=== PATIENT | female | born 1955 | race Hispanic/Latino ===

== ENCOUNTER 2021-03-19 11:29 | Emergency (ER) | payer OTHER ==
[~2021-03-19] VITALS: Ht 154.9 cm; Wt 95.3 kg
[2021-03-19] MEDS ORDERED: TRAMADOL HCL 50 MG TAB PO ONE (11:45)
[2021-03-19] MEDS ORDERED: ULTRAM50 MG PO (13:19)
== END 2021-03-19 13:40 | disposition home or self-care (01) ==
LOC: ER 11:41
DX: S93.402A Sprain of unspecified ligament of left ankle, initial encounter (principal); X50.1XXA Overexertion from prolonged static or awkward postures, initial encounter; Y93.01 Activity, walking, marching and hiking; E11.22 Type 2 diabetes mellitus with diabetic chronic kidney disease; N18.6 End stage renal disease; Z99.2 Dependence on renal dialysis; E78.5 Hyperlipidemia, unspecified
CPT/HCPCS: 99283

== ENCOUNTER 2022-02-03 16:50 | Emergency (ER) | payer OTHER ==
[~2022-02-03] VITALS: Ht 154.9 cm; Wt 95.3 kg
[~2022-02-03 16:50] MED LIST: ULTRAM50 MG PO
[2022-02-03 17:15] LABS: BASOPHILS % 0.3 % (0.0-1.0); EOSINOPHILS # (AUTO) 0.1 (0.0-0.4); EOSINOPHILS % 0.6 % (0.0-6.0); HEMATOCRIT 26.7 % (34.2-44.1); HEMOGLOBIN 8.6 g/dL (12.0-16.0); LYMPHOCYTES # (AUTO) 1.1 (1.0-3.2); LYMPHOCYTES % 11.1 % (18.0-39.1); MEAN CORPUSCULAR HEMOGLOBIN 29.5 pg (28-32); MEAN CORPUSCULAR HGB CONC 32.2 g/dL (31-35); MEAN CORPUSCULAR VOLUME 91.4 fL (81-99); MONOCYTES # (AUTO) 0.6 (0.2-0.8); MONOCYTES % 5.6 % (4.4-11.3); NEUTROPHILS % 81.9 % (38.7-80.0); PLATELET COUNT 282 x10e3/uL (140-360); RED BLOOD COUNT 2.92 x10e6/uL (3.6-5.1); RED CELL DISTRIBUTION WIDTH 14.3 % (11.7-14.4)
[2022-02-03 17:31] LABS: INR 0.98; PROTHROMBIN TIME 13.9 seconds (11.9-14.5)
[2022-02-03 17:32] LABS: PARTIAL THROMBOPLASTIN TIME 29.6 seconds (23.8-35.5)
[2022-02-03 17:40] LABS: ALBUMIN 2.6 g/dL (3.5-5.0); ALBUMIN/GLOBULIN RATIO 0.6 (0.8-2.0); ANION GAP 15.3 mmol/L (8-16); CALCIUM 8.7 mg/dL (8.4-10.2); CREATININE, SERUM 5.75 mg/dL (0.57-1.11); POTASSIUM 4.3 mmol/L (3.5-5.1)
[2022-02-03] MEDS ORDERED: SODIUM CHLORIDE 0.9% 50ML 50 ML ONE (18:28)
[2022-02-03] MEDS ORDERED: IOPAMIDOL 370 MG/ML 200 ML INFUS..BTL INJ ONE (18:28)
[2022-02-03] MEDS ORDERED: CEPHALEXIN500 MG PO (19:13)
[2022-02-03] MEDS ORDERED: FERROUS SULFAT324 MG PO (19:13)
[2022-02-03 20:08] VITALS: BP 152/63
== END 2022-02-03 19:45 | disposition home or self-care (01) ==
LOC: ER 17:26
DX: D25.9 Leiomyoma of uterus, unspecified (principal); N39.0 Urinary tract infection, site not specified; E11.22 Type 2 diabetes mellitus with diabetic chronic kidney disease; N18.6 End stage renal disease; Z99.2 Dependence on renal dialysis; E78.5 Hyperlipidemia, unspecified; I51.7 Cardiomegaly; J90 Pleural effusion, not elsewhere classified
CPT/HCPCS: 36415; 70450; 72125; 74177; 76856; 80053; 85025; 85610; 85730; 99284; Q9967

== ENCOUNTER 2022-06-23 22:33 | Observation (INO) | payer OTHER ==
[~2022-06-23] VITALS: Ht 154.9 cm; Wt 95.3 kg
[~2022-06-23 22:33] MED LIST changes: +CEPHALEXIN500 MG PO; +FERROUS SULFAT324 MG PO
[2022-06-23 23:35] LABS: BASOPHILS % 0.6 % (0.0-1.0); EOSINOPHILS # (AUTO) 0.1 (0.0-0.4); EOSINOPHILS % 0.8 % (0.0-6.0); HEMATOCRIT 43.3 % (34.2-44.1); LYMPHOCYTES # (AUTO) 1.8 (1.0-3.2); LYMPHOCYTES % 24.8 % (18.0-39.1); MEAN CORPUSCULAR HEMOGLOBIN 29.6 pg (28-32); MEAN CORPUSCULAR VOLUME 98.6 fL (81-99); MONOCYTES # (AUTO) 0.5 (0.2-0.8); MONOCYTES % 6.9 % (4.4-11.3); NEUTROPHILS # (AUTO) 4.7 (2.1-6.9); NEUTROPHILS % 66.6 % (38.7-80.0); PLATELET COUNT 303 x10e3/uL (140-360); RED BLOOD COUNT 4.39 x10e6/uL (3.6-5.1); RED CELL DISTRIBUTION WIDTH 14.6 % (11.7-14.4)
[2022-06-23 23:46] LABS: ALBUMIN 3.5 g/dL (3.5-5.0); ALBUMIN/GLOBULIN RATIO 0.8 (0.8-2.0); ANION GAP 20.4 mmol/L (8-16); CALCIUM 9.1 mg/dL (8.4-10.2); CREATININE, SERUM 8.63 mg/dL (0.57-1.11)
[2022-06-23 23:48] LABS: POTASSIUM 6.4 mmol/L (3.5-5.1)
[2022-06-24] VITALS (8 sets, daily range): BP systolic 139–167; BP diastolic 43–76
[2022-06-24] MEDS ORDERED: CALCIUM CHLORIDE 10% 1.36 MEQ/ML 10ML SYR IV STA (00:04)
[2022-06-24] MEDS ORDERED: DEXTROSE 50% SYRINGE 50 ML IV STA (00:04)
[2022-06-24] MEDS ORDERED: SODIUM BICARBONATE 8.4% INJ 50 ML SYR IV STA (00:04)
[2022-06-24] MEDS ORDERED: SOD POLYSTYRENE SULFONATE SUSP 15 GM/60 ML BTL PO ONE (00:15)
[2022-06-24] MEDS ORDERED: INSULIN REGULAR, HUMAN 100 UNIT/1 ML IV ONE (00:15)
[2022-06-24] MEDS ORDERED: SODIUM CHLORIDE FLUSH 10 ML SYR INJ PRN (00:45)
[2022-06-24] MEDS ORDERED: ONDANSETRON HCL INJ 2MG/ML 2ML 2 MG/ML VIAL IV PRN (00:45)
[2022-06-24] MEDS ORDERED: HYDRALAZINE HCL50 MG PO (04:01)
[2022-06-24] MEDS ORDERED: ASPIRIN81 MG PO (04:01)
[2022-06-24] MEDS ORDERED: LISINOPRIL5 MG PO (04:01)
[2022-06-24] MEDS ORDERED: FUROSEMIDE40 MG PO (04:01)
[2022-06-24] MEDS ORDERED: NIFEDIPINE ER30 M1 PO (04:01)
[2022-06-24] MEDS ORDERED: NOVOLIN N100 UNIT/1 SQ (04:01)
[2022-06-24] MEDS ORDERED: ATORVASTATIN CA20 MG PO (04:01)
[2022-06-24 07:51] LABS: BASOPHILS % 0.4 % (0.0-1.0); EOSINOPHILS % 0.3 % (0.0-6.0); HEMATOCRIT 39.2 % (34.2-44.1); HEMOGLOBIN 11.9 g/dL (12.0-16.0); LYMPHOCYTES # (AUTO) 1.1 (1.0-3.2); LYMPHOCYTES % 14.4 % (18.0-39.1); MEAN CORPUSCULAR HEMOGLOBIN 29.8 pg (28-32); MEAN CORPUSCULAR HGB CONC 30.4 g/dL (31-35); MONOCYTES # (AUTO) 0.3 (0.2-0.8); MONOCYTES % 4.3 % (4.4-11.3); NEUTROPHILS # (AUTO) 6.4 (2.1-6.9); NEUTROPHILS % 80.3 % (38.7-80.0); PLATELET COUNT 262 x10e3/uL (140-360); RED CELL DISTRIBUTION WIDTH 14.7 % (11.7-14.4)
[2022-06-24 08:15] LABS: ANION GAP 19.5 mmol/L (8-16); CALCIUM 8.3 mg/dL (8.4-10.2); CREATININE, SERUM 8.73 mg/dL (0.57-1.11)
[2022-06-24 08:19] LABS: POTASSIUM 6.5 mmol/L (3.5-5.1)
[2022-06-24] MEDS ORDERED: SODIUM CHLORIDE 0.9% 250ML 500 ML IV PRN (09:15)
[2022-06-24] MEDS ORDERED: ALBUMIN 25% 12.5GM 0.25 GM/ML BTL IV PRN (09:15)
[2022-06-24] MEDS ORDERED: HEPARIN SOD (PORCINE) 1000 UNIT/ML SDV IV PRN (09:15)
[2022-06-24] MEDS ORDERED: SODIUM CHLORIDE 0.9% 1000ML 2,000 ML IV PRN (09:15)
[2022-06-24] MEDS ORDERED: LISINOPRIL 2.5 MG TAB PO SCH (10:30)
[2022-06-24] MEDS ORDERED: ASPIRIN 81 MG CHEW TAB PO SCH (10:30)
[2022-06-24] MEDS ORDERED: NIFEDIPINE CR 30 MG TAB PO SCH (10:30)
[2022-06-24] MEDS ORDERED: HYDRALAZINE HCL 25 MG TAB PO SCH (15:00)
[2022-06-24] MEDS ORDERED: CALCIUM CARBONATE 500 MG CHEWABLE TABS PO PRN (16:00)
[2022-06-24] MEDS ORDERED: FUROSEMIDE 40 MG TAB PO SCH (17:00)
[2022-06-24] MEDS ORDERED: NPH, HUMAN INSULIN ISOPHANE 100 UNIT/1 ML 3ML VIAL SQ SCH (17:00)
[2022-06-24] MEDS ORDERED: ONDANSETRON HCL 4 MG ORAL DISINTEGRATING TAB PO PRN (17:30)
[2022-06-24] MEDS ORDERED: ATORVASTATIN 40 MG TAB PO SCH (21:00)
== END 2022-06-24 18:27 | disposition home or self-care (01) ==
LOC: ER 22:44 → ERHOLD 06-24 00:43 → MED/SURG2 06-24 01:26
PROVIDERS: ADMIT Family Medicine; ATTEND Family Medicine
DX: E87.5 Hyperkalemia (principal); I12.0 Hypertensive chronic kidney disease with stage 5 chronic kidney disease or end stage renal disease; E11.22 Type 2 diabetes mellitus with diabetic chronic kidney disease; N18.6 End stage renal disease; Z99.2 Dependence on renal dialysis; Z79.4 Long term (current) use of insulin; Z88.5 Allergy status to narcotic agent; Z20.822 Contact with and (suspected) exposure to COVID-19
CPT/HCPCS: 36415; 80048; 80053; 82948; 84132; 85025; 86704; 86705; 86706; 86707; 87340; 87350; 93005; 94799; 99284; G0378; J1644; J1817; J7799